=== PATIENT | female | born 2000 | race Caucasian/White ===

== ENCOUNTER 2025-03-08 22:03 | Day surgery (SDC) | payer MEDICAID, OTHER ==
[2025-03-08 22:24] VITALS: BMI 39.1
[2025-03-08] MEDS ORDERED: hydrALAZINE 20 MG/ML VIAL SLOW IVP PRN (23:04)
[2025-03-08 23:21] LABS: Glucose, Urine (Dipstick) Normal (Negative); Leukocyte 25 (Negative); Protein, Urine (Dipstick) 15 mg/dl (Neg-Trace); Specific Gravity, Urine 1.020 (1.005-1.030)
[2025-03-08 23:34] LABS: RBC/HPF 0-3 HPF (0-3)
[2025-03-08 23:35] LABS: Bacteria/HPF 2+ HPF (None Seen)
== END 2025-03-09 00:05 | disposition home or self-care (01) ==
LOC: CSHLD/OP 22:03
PROVIDERS: ATTEND Obstetrics & Gynecology
DX: O99.891 Other specified diseases and conditions complicating pregnancy (principal); R10.20 Pelvic and perineal pain unspecified side; Z3A.35 35 weeks gestation of pregnancy; Z90.89 Acquired absence of other organs
CPT/HCPCS: 81003; 81015; 87086; 99282